=== PATIENT | female | born 1995 | race American Indian/Alaskan Native ===

== ENCOUNTER 2019-04-01 06:39 | Outpatient (CLI) | payer MEDICAID ==
[2019-04-01 07:26] VITALS: BP 115/58
[2019-04-01 08:32] LABS: Bacteria,Urine 3+ /HPF (Negative); Bilirubin,Urine NEG (Negative); Blood,Urine NEG (Negative); Color,Urine Yellow (Yellow); Mucus,Urine FEW /HPF; Protein,Urine <15 mg/dL mg/dL (Negative)
== END 2019-04-01 09:31 | disposition home or self-care (01) ==
LOC: TRG 06:39
PROVIDERS: ATTEND Obstetrics & Gynecology
DX: O26.892 Other specified pregnancy related conditions, second trimester (principal); O36.8920 Maternal care for other specified fetal problems, second trimester, not applicable or unspecified; R10.9 Unspecified abdominal pain; M79.671 Pain in right foot; Z3A.27 27 weeks gestation of pregnancy
CPT/HCPCS: 81001; 93005; 93010

== ENCOUNTER 2020-07-02 16:01 | Emergency (ER) | payer SELFPAY | END 2020-07-02 18:15 | disposition left against medical advice (07) | LOC: ED 16:01 | DX: O26.891 Other specified pregnancy related conditions, first trimester (principal); Z53.21 Procedure and treatment not carried out due to patient leaving prior to being seen by health care provider ==

== ENCOUNTER 2020-11-17 16:34 | Emergency (ER) | payer MEDICAID ==
--- NOTE | 2020-11-17 18:07 | XRay Report ---
RIGHT ANKLE 3 VIEW(S) INDICATION / CLINICAL INFORMATION: swollen ankle COMPARISON: None available. FINDINGS: BONES / JOINT(S): No acute fracture or subluxation. No significant arthritis. SOFT TISSUES: No significant abnormality. ADDITIONAL FINDINGS: None. RIGHT FOOT 3 VIEW(S) INDICATION / CLINICAL INFORMATION: swollen ankle COMPARISON: None available. FINDINGS: BONES / JOINT(S): There is a nondisplaced fracture of the fifth metatarsal base. No significant arthr itis. SOFT TISSUES: There is moderate subcutaneous edema along the lateral aspect of the midfoot. ADDITIONAL FINDINGS: None. IMPRESSION: Nondisplaced fracture of the fifth metatarsal base. Signer Name: Ildefonso Renee MD Signed: 11/17/2020 6:03 PM Workstation Name: [id number]
[2020-11-17] MEDS ORDERED: ACETAMINOPHEN W/CODEINE 300-30 MG TAB PO ONE (18:10)
[2020-11-17] MEDS ORDERED: ACETAMINOPHEN 325 MG TAB PO ONE (18:10)
--- NOTE | 2020-11-17 18:11 | Emergency Department Report ---
ED General Adult HPI - General Chief complaint: Extremity Injury, Lower Stated complaint: RT FOOT INJURY Time Seen by Provider: 11/17/20 17:59 Source: patient Mode of arrival: Wheelchair Limitations: No Limitations - History of Present Illness Initial comments: 25-year-old -[place] female patient presents with complaints of right foot pain after a trip and fall down stairs today. She states she has a small abrasion to her left foot, and is unsure of her last tetanus vaccination. Patient is currently 6 months and denies any vaginal bleeding or abdominal pain. She rates her foot pain is a 10/10 in severity states there is swelling. She denies any numbness. Pain worsens with ambulation and movement and touch. - Related Data Home Medications Medication Instructions Recorded Confirmed Last Taken Vitamin 325 mg PO DAILY 04/01/19 04/01/19 03/31/19 09:00 Previous Rx's Medication Instructions Recorded Last Taken Type Ferrous Sulfate [Feosol 325 MG tab] 325 mg PO BID #60 tablet 06/03/19 Unknown Rx Ibuprofen [Motrin 600 MG tab] 600 mg PO Q6H #30 tablet 06/03/19 Unknown Rx Vit-Fe Fumar-FA [ 1 each PO QDAY #30 tablet 06/03/19 Unknown Rx Vitamin] Acetaminophen/Codeine [Tylenol 1 tab PO Q6H PRN #12 tab 11/17/20 Unknown Rx /Codeine # 3 tab] Allergies Allergy/AdvReac Type Severity Reaction Status Date / Time latex Allergy Severe Rash Verified 11/17/20 17:07 metronidazole [From Flagyl] Allergy Mild Hives Verified 11/17/20 17:07 ED Review of Systems ROS: Stated complaint: RT FOOT INJURY Other details as noted in HPI Gastrointestinal: denies: abdominal pain Genitourinary: denies: abnormal menses Musculoskeletal: joint swelling, arthralgia Neurological: denies: numbness, paresthesias Hematological/Lymphatic: denies: easy bleeding ED Past Medical Hx - Past Medical History Hx Hypertension: No Hx Congestive Heart Failure: No Hx Diabetes: No Hx Deep Vein Thrombosis: No Hx Renal Disease: No Hx Sickle Cell Disease: No Hx Seizures: No Hx Asthma: No Hx COPD: No Hx HIV: No - Social History Smoking Status: Never Smoker Substance Use Type: None - Medications Home Medications: Home Medications Medication Instructions Recorded Confirmed Last Taken Type Vitamin 325 mg PO DAILY 04/01/19 04/01/19 03/31/19 09:00 History Ferrous Sulfate [Feosol 325 MG tab] 325 mg PO BID #60 tablet 06/03/19 Unknown Rx Ibuprofen [Motrin 600 MG tab] 600 mg PO Q6H #30 tablet 06/03/19 Unknown Rx Vit-Fe Fumar-FA [ 1 each PO QDAY #30 tablet 06/03/19 Unknown Rx Vitamin] Acetaminophen/Codeine [Tylenol 1 tab PO Q6H PRN #12 tab 11/17/20 Unknown Rx /Codeine # 3 tab] ED Physical Exam - General Limitations: No Limitations General appearance: alert, in no apparent distress - Head Head exam: Present: atraumatic, normocephalic - Eye Eye exam: Present: normal appearance - Neck Neck exam: Present: normal inspection - Respiratory Respiratory exam: Absent: respiratory distress - Cardiovascular Cardiovascular Exam: Absent: normal rhythm - GI/Abdominal GI/Abdominal exam: Present: soft. Absent: tenderness - Expanded Lower Extremity Exam Right Foot/Toe exam: Present: tenderness, swelling. Absent: ecchymosis, deformity, dislocation Neuro vascular tendon exam: Present: no vascular compromise. Absent: abnormal cap refill Left Foot/Toe exam: Present: abrasion (Small abrasion noted to distal medial portion of foot without obvious foreign body or surrounding erythema) - Neurological Exam Neurological exam: Present: alert, oriented X3 - Psychiatric Psychiatric exam: Present: normal affect, normal mood - Skin Skin exam: Present: warm, dry, normal color. Absent: rash ED Course Vital Signs 11/17/20 19:20 Temperature 98.8 F Pulse Rate 77 Respiratory 18 Rate Blood Pressure 127/65 [Left] O2 Sat by Pulse 100 Oximetry ED Medical Decision Making - Radiology Data Radiology results: report reviewed RIGHT FOOT 3 VIEW(S) INDICATION / CLINICAL INFORMATION: swollen ankle COMPARISON: None available. FINDINGS: BONES / JOINT(S): There is a nondisplaced fracture of the fifth metatarsal base. No significant arthritis. SOFT TISSUES: There is moderate subcutaneous edema along the lateral aspect of the midfoot. ADDITIONAL FINDINGS: None. IMPRESSION: Nondisplaced fracture of the fifth metatarsal base. - Medical Decision Making 25-year-old -[place] female patient presents with complaints of right foot pain after a trip and fall down stairs today. She states she has a small abrasion to her left foot, and is unsure of her last tetanus vaccination. Patient is currently 6 months and denies any vaginal bleeding or abdominal pain. She rates her foot pain is a 10/10 in severity states there is swelling. She denies any numbness. Pain worsens with ambulation and movement and touch. X-ray shows right nondisplaced Barker fracture. Patient placed in a posterior splint-she tolerated procedure well and denies any new pain; she is normal perfusion of the toes post splint application. Crutches provided. Patient informed to remain nonweightbearing and follow-up with orthopedics within 3 to 5 days. She is otherwise well-appearing, her vitals are normal, she is stable for discharge home. Discussed strict return precautions in great detail with patient who verbalizes understanding. Critical care attestation.: If time is entered above; I have spent that time in minutes in the direct care of this critically ill patient, excluding procedure time. ED Disposition Clinical Impression: Barker fracture Qualifiers: Encounter type: initial encounter Fracture type: closed Laterality: right Qualified Code(s): S99.191A - Other physeal fracture of right metatarsal, initial encounter for closed fracture Disposition: DC-01 TO HOME OR SELFCARE Is pt being admited?: No Condition: Stable Instructions: Metatarsal Fracture Prescriptions: Acetaminophen/Codeine [Tylenol /Codeine # 3 tab] 1 tab PO Q6H PRN #12 tab PRN Reason: Pain , Severe (7-10) Referrals: [facility] [Provider Group] - 3-5 Days
[2020-11-17 19:21] VITALS: BP 127/65
== END 2020-11-17 21:36 | disposition home or self-care (01) ==
LOC: ED 16:34
DX: O26.891 Other specified pregnancy related conditions, first trimester (principal); S92.354A Nondisplaced fracture of fifth metatarsal bone, right foot, initial encounter for closed fracture; Z3A.01 Less than 8 weeks gestation of pregnancy; Z79.1 Long term (current) use of non-steroidal anti-inflammatories (NSAID); Z79.899 Other long term (current) drug therapy; Z91.040 Latex allergy status; Z88.8 Allergy status to other drugs, medicaments and biological substances; W01.0XXA Fall on same level from slipping, tripping and stumbling without subsequent striking against object, initial encounter; Y93.89 Activity, other specified; Y92.89 Other specified places as the place of occurrence of the external cause; Y99.8 Other external cause status

== ENCOUNTER 2020-11-19 12:16 | Emergency (ER) | payer SELFPAY ==
[2020-11-19 13:02] VITALS: BP 104/67
== END 2020-11-19 19:00 | disposition left against medical advice (07) ==
LOC: ED 12:16
DX: M79.671 Pain in right foot (principal); Z53.21 Procedure and treatment not carried out due to patient leaving prior to being seen by health care provider

== ENCOUNTER 2020-12-26 10:33 | Outpatient (CLI) | payer MEDICAID ==
[2020-12-26 10:55] VITALS: BP 102/59
[2020-12-26] MEDS ORDERED: LACTATED RINGERS 500 ML IV ONE (11:05)
== END 2020-12-26 12:19 | disposition home or self-care (01) ==
LOC: TRG 10:33 → APU 10:34 → TRG 12:19
PROVIDERS: ATTEND Obstetrics & Gynecology
DX: Z34.93 Encounter for supervision of normal pregnancy, unspecified, third trimester (principal); Z3A.31 31 weeks gestation of pregnancy
CPT/HCPCS: 36415; 59025; 84112

== ENCOUNTER 2021-02-15 19:29 | Outpatient (CLI) | payer MEDICAID ==
[2021-02-15 19:45] VITALS: BP 116/62
== END 2021-02-15 22:14 | disposition home or self-care (01) ==
LOC: TRG 19:29 → APU 19:40 → TRG 22:14
PROVIDERS: ATTEND Obstetrics & Gynecology
DX: Z34.93 Encounter for supervision of normal pregnancy, unspecified, third trimester (principal); Z3A.39 39 weeks gestation of pregnancy
CPT/HCPCS: 59025

== ENCOUNTER 2021-02-16 09:30 | Inpatient (IN) | payer MEDICAID ==
[2021-02-16] MEDS ORDERED: MORPHINE 10 MG/1 ML INJ IM PRN (11:38)
[2021-02-16] MEDS ORDERED: MORPHINE 4 MG/1 ML INJ IM ONE (12:00)
[2021-02-16] MEDS ORDERED: CARBOPROST TROMETHAMINE 250 MCG/1 ML INJ IM PRN ×2 (12:02→12:27)
[2021-02-16] MEDS ORDERED: METHYLERGONOVINE MALEATE 0.2 MG/ML VIAL IM PRN ×2 (12:02→12:27)
[2021-02-16] MEDS ORDERED: BUTORPHANOL 2 MG/1 ML INJ IV PRN (12:02)
[2021-02-16] MEDS ORDERED: miSOPROStol 200 MCG TAB PR PRN ×2 (12:02→12:27)
[2021-02-16] MEDS ORDERED: ACETAMINOPHEN 325 MG TAB PO PRN (12:02)
[2021-02-16] MEDS ORDERED: LOPERAMIDE 2 MG CAP PO PRN ×2 (12:02→12:27)
[2021-02-16] MEDS ORDERED: TERBUTALINE 1 MG/1 ML INJ SUB-Q PRN ×2 (12:02→12:27)
[2021-02-16] MEDS ORDERED: ePHEDrine SULFATE 50 MG/1 ML INJ IV PRN ×2 (12:02→12:27)
[2021-02-16] MEDS ORDERED: LIDOCAINE (2%) 20 MG/1 ML VIAL 20 ML MDV INFILTRATI ONE ×3 (12:02→19:27)
[2021-02-16] MEDS ORDERED: OXYTOCIN 10 UNIT/1 ML INJ IM PRN ×2 (12:02→12:27)
[2021-02-16] MEDS ORDERED: MINERAL OIL 30 ML ORAL LIQD PO PRN ×2 (12:02→12:27)
[2021-02-16] MEDS ORDERED: LACTATED RINGERS 1,000 ML IV SCH ×2 (12:15→12:30)
[2021-02-16] MEDS ORDERED: ONDANSETRON 4 MG/2 ML INJ IV PRN (12:27)
[2021-02-16] MEDS ORDERED: fentaNYL 100 MCG/2 ML INJ IV PRN (12:27)
[2021-02-16] MEDS ORDERED: AMPICILLIN/NS 2 GM/100 ML 2 GM/100 ML BAG IV ONE (12:27)
--- NOTE | 2021-02-16 12:41 | History and Physical Report ---
History of Present Illness Date of examination: 02/16/21 Date of admission: 02/16/21 12:03 Chief complaint: latent phase of labor,painful contractions Past History Past Surgical History: no surgical history - Obstetrical History Expected Date of Delivery: 02/22/21 Actual Gestation: 39 Week(s) 1 Day(s) : 3 Para: 1 Medications and Allergies Allergies Allergy/AdvReac Type Severity Reaction Status Date / Time latex Allergy Severe Rash Verified 11/17/20 17:07 metronidazole [From Flagyl] Allergy Mild Hives Verified 11/17/20 17:07 Home Medications Medication Instructions Recorded Confirmed Last Taken Type Vit-Fe Fumar-FA [ 1 each PO QDAY #30 tablet 06/03/19 02/16/21 02/15/21 Rx Vitamin] Terconazole 1 applicator VG QHS 02/16/21 02/16/21 02/15/21 History Active Meds: Active Medications Acetaminophen (Acetaminophen 325 Mg Tab) 650 mg PO Q4H PRN PRN Reason: Pain, Mild (1-3) Butorphanol Tartrate (Butorphanol 2 Mg/1 Ml Inj) 1 mg IV Q2H PRN PRN Reason: Pain, Moderate(4-6) LABOR PAIN Carboprost Tromethamine (Carboprost Tromethamine 250 Mcg/1 Ml Inj) 250 mcg IM ONCE PRN PRN Reason: Uterine Bleeding Carboprost Tromethamine (Carboprost Tromethamine 250 Mcg/1 Ml Inj) 250 mcg IM ONCE PRN PRN Reason: Uterine Bleeding Ephedrine Sulfate (Ephedrine Sulfate 50 Mg/1 Ml Inj) 10 mg IV Q2M PRN PRN Reason: Hypotension Ephedrine Sulfate (Ephedrine Sulfate 50 Mg/1 Ml Inj) 10 mg IV Q2M PRN PRN Reason: Hypotension Fentanyl (Fentanyl 100 Mcg/2 Ml Inj) 100 mcg IV Q2H PRN PRN Reason: Pain,Severe (7-10) LABOR PAIN Oxytocin/Sodium Chloride (Pitocin/Ns 30 Unit/500ml) 30 units in 500 mls @ 2 mls/hr IV TITR RIVAS; Protocol Lactated Ringer's (Lactated Ringers) 1,000 mls @ 125 mls/hr IV DIRECT RIVAS Oxytocin/Sodium Chloride (Pitocin/Ns 30 Unit/500ml) 30 units in 500 mls @ 40 mls/hr IV TITR RIVAS; Protocol Oxytocin/Sodium Chloride (Pitocin/Ns 30 Unit/500ml) 30 units in 500 mls @ 2 mls/hr IV TITR RIVAS; Protocol Lactated Ringer's (Lactated Ringers) 1,000 mls @ 125 mls/hr IV DIRECT RIVAS Ampicillin Sodium (Ampicillin/Ns 2 Gm/100 Ml) 2 gm in 100 mls @ 100 mls/hr IV ONCE ONE; Protocol Stop: 02/16/21 13:26 Lidocaine (Lidocaine (2%) 20 Mg/1 Ml Vial 20 Ml Mdv) 20 ml INFILTRATI ONCE ONE Stop: 02/16/21 12:28 Loperamide HCl (Loperamide 2 Mg Cap) 2 mg PO ONCE PRN PRN Reason: give with Hemabate Loperamide HCl (Loperamide 2 Mg Cap) 2 mg PO ONCE PRN PRN Reason: give with Hemabate Methylergonovine Maleate (Methylergonovine Maleate 0.2 Mg/Ml Vial) 0.2 mg IM ONCE PRN PRN Reason: Uterine Bleeding Methylergonovine Maleate (Methylergonovine Maleate 0.2 Mg/Ml Vial) 0.2 mg IM ONCE PRN PRN Reason: Uterine Bleeding Mineral Oil (Mineral Oil 30 Ml Oral Liqd) 30 ml PO QHS PRN PRN Reason: Constipation Mineral Oil (Mineral Oil 30 Ml Oral Liqd) 30 ml PO QHS PRN PRN Reason: Constipation Misoprostol (Misoprostol 200 Mcg Tab) 800 mcg OR ONCE PRN PRN Reason: Uterine Bleeding Misoprostol (Misoprostol 200 Mcg Tab) 800 mcg OR ONCE PRN PRN Reason: Uterine Bleeding Ondansetron HCl (Ondansetron 4 Mg/2 Ml Inj) 4 mg IV Q8H PRN PRN Reason: Nausea And Vomiting Oxytocin (Oxytocin 10 Unit/1 Ml Inj) 10 unit IM ONCE PRN PRN Reason: Uterine Bleeding Oxytocin (Oxytocin 10 Unit/1 Ml Inj) 10 unit IM ONCE PRN PRN Reason: Uterine Bleeding Terbutaline Sulfate (Terbutaline 1 Mg/1 Ml Inj) 0.25 mg SUB-Q ONCE PRN PRN Reason: Hyperstimulation/Hypertonicity Terbutaline Sulfate (Terbutaline 1 Mg/1 Ml Inj) 0.25 mg SUB-Q ONCE PRN PRN Reason: Hyperstimulation/Hypertonicity Review of Systems All systems: negative (reviewed) - Vital Signs Vital signs: Vital Signs Temp Pulse Resp BP Pulse Ox 98 F 75 16 113/69 98 02/16/21 10:13 02/16/21 10:13 02/16/21 10:13 02/16/21 10:13 02/16/21 10:13 Temp Pulse Resp BP Pulse Ox 98 F 81 16 113/69 99 02/16/21 10:13 02/16/21 11:23 02/16/21 10:13 02/16/21 10:13 02/16/21 11:23 Results All other labs normal. Assessment and Plan admission gbs prophylaxis oxytocin epidural/pain meds prn panel CFM Maternal/ well being reassuring overall Kinza Andres MD
[2021-02-16] MEDS ORDERED: OXYTOCIN DRIP 30 UNITS/500 ML BAG IV SCH ×3 (13:00)
[2021-02-16 15:30] LABS: Basophils % (Auto) 0.1 % (0.0-1.8); Eosinophils % (Auto) 0.1 % (0.0-4.3); Hematocrit 37.6 % (30.3-42.9); Hemoglobin 12.5 gm/dl (10.1-14.3); Lymphocytes # (Auto) 1.5 K/mm3 (1.2-5.4); Lymphocytes % (Auto) 9.1 % (13.4-35.0); Mean Corpuscular HGB Conc 33 % (30-34); Mean Corpuscular Volume 98 fl (79-97); Monocytes # (Auto) 0.7 K/mm3 (0.0-0.8); Platelet Count 148 K/mm3 (140-440); Red Blood Count 3.84 M/mm3 (3.65-5.03); Red Cell Distribution Width 13.2 % (13.2-15.2)
[2021-02-16] MEDS ORDERED: AMPICILLIN/NS 1 GM/50 ML 1 GM/50 ML BAG IV SCH (17:00)
--- NOTE | 2021-02-16 20:03 | Procedure Note ---
OB Delivery Note - Delivery Date of Delivery: 02/16/21 Surgeon: RODNEY RICHARDSON Estimated blood loss: <100cc - Vaginal Delivery position: OA Intrapartum events: none Delivery induction: none Delivery augmentation: pitocin Delivery monitor: external FHT, external uterine Route of delivery: Delivery placenta: spontaneous Delivery cord: 3 umbilical vessels Episiotomy: none Delivery laceration: none Anesthesia: none Delivery comments: Patient pushed to deliver a viable male with weight 3310gms and 8/9. Position PAGE, no nuchal cord. Spontaneous cry at delivery. Delivery of the anterior shoulder atraumatic, remainder of delivery uncomplicated. Cord clamped cut and baby handed to waiting [facility] team. Spontaneous delivery of an intact placenta with three-vessel cord. Inspection of the perineum cervix and vagina revealed no lacerations. Firm fundus, EBL 100ml. All sponge needle and instrument counts correct x2. Mom and baby stable to . Kinza Richardson MD
[2021-02-17] MEDS ORDERED: IBUPROFEN 600 MG TAB PO PRN (06:24)
[2021-02-17] MEDS ORDERED: WITCH HAZEL/ GLYCERIN PAD TP PRN (07:43)
[2021-02-17] MEDS ORDERED: PROMETHAZINE 25 MG TAB PO PRN (07:43)
[2021-02-17] MEDS ORDERED: PROMETHAZINE 25 MG RECT SUPP PR PRN (07:43)
[2021-02-17] MEDS ORDERED: LANOLIN/ZINC/DIMETHICONE (LANSINOH) 7 GM TP PRN (07:43)
[2021-02-17] MEDS ORDERED: ONDANSETRON 4 MG/2 ML INJ IV PRN (07:43)
[2021-02-17] MEDS ORDERED: MAGNESIUM HYDROXIDE (MOM) ORAL LIQD UDC PO PRN (07:43)
[2021-02-17] MEDS ORDERED: diphenhydrAMINE 25 MG CAP PO PRN (07:43)
[2021-02-17] MEDS ORDERED: KETOROLAC 30 MG/1 ML INJ IV PRN (07:43)
[2021-02-17] MEDS ORDERED: HYDROcodone/ACETAMINOPHEN 5-325 MG TAB PO PRN (07:43)
[2021-02-17] MEDS: IBUPROFEN 600 MG TAB PO SCH ×3 (09:15→20:57)
[2021-02-17 09:18] LABS: Hematocrit 36.5 % (30.3-42.9)
--- NOTE | 2021-02-17 11:18 | Progress Note ---
Assessment and Plan A: day 1 S/P . P: Continue routine care. Anticipate discharge home tomorrow if patient continues to do well. Subjective - Subjective Date of service: 02/17/21 Principal diagnosis: day 1 S/P Patient reports: appetite normal, voiding normally, pain well controlled, flatus, ambulating normally, no dizzy ambulation, no nauseated [place]: doing well Objective - Vital Signs Latest vital signs: Vital Signs Temp Pulse Resp BP BP Pulse Ox 02/17/21 08:47 97.8 F 74 18 97/51 99 02/17/21 04:46 20 02/17/21 04:35 98.0 F 69 18 114/69 98 02/17/21 00:00 98.6 F 74 16 114/78 02/16/21 21:22 98.9 F 87 20 113/67 99 02/16/21 20:52 90 122/71 02/16/21 20:37 91 H 138/67 02/16/21 20:22 102 H 125/70 02/16/21 20:07 88 122/64 02/16/21 19:58 72 88 02/16/21 19:57 85 89 02/16/21 19:53 87 98 02/16/21 19:52 82 123/63 02/16/21 19:49 91 H 119/62 02/16/21 19:48 85 99 02/16/21 19:43 86 100 02/16/21 19:38 97 H 99 02/16/21 19:33 87 100 02/16/21 19:28 78 100 02/16/21 19:23 88 100 02/16/21 19:20 100 H 114/77 02/16/21 19:18 95 H 100 02/16/21 19:13 94 H 100 02/16/21 19:08 76 100 02/16/21 19:04 97 H 118/77 02/16/21 19:03 84 100 02/16/21 19:01 98.2 F 22 02/16/21 18:58 86 100 02/16/21 18:53 104 H 99 02/16/21 18:51 81 129/70 02/16/21 18:48 79 100 02/16/21 18:43 80 100 02/16/21 18:38 83 100 07/17/21 18:33 83 100 1721 18:28 96 H 100 1721 18:23 86 100 1721 18:19 90 128/72 1721 18:18 83 100 1721 18:13 99 H 99 1721 18:08 85 98 1721 18:03 83 100 1721 17:58 99 H 100 1721 17:53 78 100 1721 17:48 87 98 1721 17:38 86 99 1721 17:33 80 100 1721 17:28 100 H 100 17 17:23 86 100 1721 17:18 89 100 17 17:13 94 H 100 02/16/21 17:08 82 100 21 17:03 85 98 02/16/21 17:00 98.2 F 02/16/21 16:58 79 99 21 16:53 88 96 1721 16:49 75 115/70 1721 16:48 86 98 21 16:43 86 98 21 16:38 94 H 99 21 16:33 91 H 100 21 16:28 79 100 21 16:23 73 99 21 16:18 77 98 21 16:13 71 99 21 16:08 78 98 1721 16:03 86 98 1721 15:58 72 98 1721 15:53 72 98 1721 15:48 83 96 1721 15:43 80 98 1721 15:38 76 98 17/21 15:33 77 96 17/21 15:28 76 98 1721 15:23 91 H 99 1721 15:20 18 21 15:18 102 H 100 1721 15:13 90 98 1721 15:08 81 99 1721 15:03 86 98 1721 14:58 90 98 1721 14:53 85 99 1721 14:48 83 100 02/16/21 14:43 96 H 98 02/16/21 14:38 82 99 02/16/21 14:14 98 H 99 02/16/21 14:09 86 99 02/16/21 14:04 78 100 02/16/21 13:59 82 99 02/16/21 13:54 104 H 99 02/16/21 13:49 76 114/66 100 02/16/21 13:44 85 100 02/16/21 13:39 75 100 02/16/21 13:34 87 99 02/16/21 13:29 73 100 02/16/21 13:24 79 99 02/16/21 13:19 89 99 02/16/21 13:13 81 96 02/16/21 13:08 89 98 02/16/21 13:03 68 98 02/16/21 12:58 87 98 02/16/21 12:00 98.1 F 18 02/16/21 11:23 81 99 02/16/21 11:18 82 98 Intake and Output 02/16/21 02/17/21 02/17/21 23:59 07:59 15:59 Intake Total 240 Output Total 700 400 Balance -460 -400 Intake: Oral 240 Output: Urine 700 400 Void 700 400 Other: Total, Intake Amount 240 Total, Output Amount 600 400 # Voids Void 1 1 Estimated Blood Loss 100 - Exam Abdomen: Present: normal appearance, soft. Absent: distention, tenderness, guarding, rigidity Uterus: Present: normal, firm, fundal height below umbilicus. Absent: bogginess, tenderness Extremities: Present: normal. Absent: tenderness - Labs Labs: Abnormal lab results 02/16/21 Range/Units 14:59 WBC 17.0 H (4.5-11.0) K/mm3 MCV 98 H (79-97) fl Lymph % (Auto) 9.1 L (13.4-35.0) % Seg Neutrophils % 86.7 H (40.0-70.0) % Seg Neutrophils # 14.7 H (1.8-7.7) K/mm3
[2021-02-17 19:28] LABS: Hematocrit 36.7 % (30.3-42.9)
--- NOTE | 2021-02-18 06:21 | Event Note ---
Date: 02/18/21 Repeat CBC and UA have been ordered; awaiting results.
[2021-02-18 09:14] LABS: Basophils % (Auto) 0.2 % (0.0-1.8); Eosinophils # (Auto) 0.2 K/mm3 (0.0-0.4); Eosinophils % (Auto) 1.4 % (0.0-4.3); Hematocrit 37.2 % (30.3-42.9); Hemoglobin 12.3 gm/dl (10.1-14.3); Lymphocytes # (Auto) 2.5 K/mm3 (1.2-5.4); Lymphocytes % (Auto) 19.6 % (13.4-35.0); Mean Corpuscular HGB Conc 33 % (30-34); Mean Corpuscular Volume 98 fl (79-97); Monocytes # (Auto) 0.7 K/mm3 (0.0-0.8); Monocytes % (Auto) 5.4 % (0.0-7.3); Platelet Count 137 K/mm3 (140-440)
--- NOTE | 2021-02-18 13:25 | Progress Note ---
Subjective - Subjective Date of service: 02/18/21 Principal diagnosis: day 1 S/P Interval history: stable for d/c to home Kinza Anders MD Patient reports: appetite normal, voiding normally, pain well controlled, ambulating normally Objective - Vital Signs Latest vital signs: Vital Signs Temp Pulse Resp BP BP Pulse Ox 02/18/21 08:04 16 02/18/21 07:42 97.9 F 78 18 110/64 100 02/18/21 00:10 98.0 F 63 20 118/72 100 02/17/21 20:57 12 02/17/21 17:00 16 114/69 02/17/21 16:00 97.8 F 75 16 114/69 100 02/17/21 13:41 65 16 104/64 98 Intake and Output 02/17/21 02/18/21 02/18/21 23:59 07:59 15:59 Intake Total 120 Balance 120 Intake: Oral 120 Other: Total, Intake Amount 120 # Voids Void 1 1 - Labs Labs: Abnormal lab results 02/18/21 Range/Units 08:28 WBC 12.7 H (4.5-11.0) K/mm3 MCV 98 H (79-97) fl MCH 33 H (28-32) pg RDW 13.0 L (13.2-15.2) % Plt Count 137 L (140-440) K/mm3 Seg Neutrophils % 73.4 H (40.0-70.0) % Seg Neutrophils # 9.3 H (1.8-7.7) K/mm3
--- NOTE | 2021-02-18 13:26 | Discharge Summary ---
Providers - Providers Date of Admission: 02/17/21 07:43 Date of discharge: 02/18/21 Attending physician: RODNEY RICHARDSON MD Primary care physician: RODNEY RICHARDSON MD Hospitalization Condition at discharge: Stable Disposition: DC-01 TO HOME OR SELFCARE Plan - Provider Discharge Summary Activity: no sex for 6 weeks Diet: routine Additional instructions: [] Smoking cessation referral if applicable(refer to patient education folder for contact #) [] Refer to [facility] Booklet Call your doctor immediately for: * Fever > 100.5 * Heavy vaginal bleeding ( >1 pad per hour) * Severe persistent headache * Shortness of breath * Reddened, hot, painful area to leg or breast * Drainage or odor from incision. * Keep incision clean and dry at all times and follow doctor's instructions regarding bathing/showering - Follow up plan Follow up: RODNEY RICHARDSON MD [Primary Care Provider] - 7 Days
[2021-02-18] MEDS: IBUPROFEN 600 MG TAB PO SCH (13:29)
[2021-02-18] MEDS ORDERED: medroxyPROGESTERone ACETATE 150 MG/ML SYRINGE IM NR (13:46)
[2021-02-18 13:50] LABS: Bacteria,Urine 1+ /HPF (Negative); Bilirubin,Urine NEG (Negative); Blood,Urine LG (Negative); Color,Urine Yellow (Yellow); RBC,Urine > 182.0 /HPF (0.0-6.0); Urobilinogen,Urine < 2.0 mg/dL (<2.0)
[2021-02-18 17:32] VITALS: BP 120/77
== END 2021-02-18 15:55 | disposition home or self-care (01) | DRG 775 ==
LOC: TRG 09:30 → APU 09:31 → LD 12:01 → TRG 12:03 → OB 21:18 → OBSVTOIN 02-17 07:43
PROVIDERS: ADMIT Obstetrics & Gynecology; ATTEND Obstetrics & Gynecology
PROC: 10E0XZZ Delivery of Products of Conception, External Approach (ICD-10-PCS; principal; 2021-02-16)
DX: O80 Encounter for full-term uncomplicated delivery (principal); Z3A.39 39 weeks gestation of pregnancy; Z37.0 Single live birth; Z88.8 Allergy status to other drugs, medicaments and biological substances; Z91.040 Latex allergy status; Z20.822 Contact with and (suspected) exposure to COVID-19
CPT/HCPCS: 36415; 59025; 81001; 85014; 85018; 85025; 86592; 86706; 86762; 86850; 86900; 86901; 87086; 87186; 87806; 96360; 96361; 96365; G0378; J0290; J1050; J2590; J3010; J7120; U0003

== ENCOUNTER 2021-09-09 12:37 | Emergency (ER) | payer SELFPAY ==
--- NOTE | 2021-09-09 14:55 | Emergency Department Report ---
ED Abdominal Pain HPI - General Chief Complaint: Abdominal Pain Stated Complaint: RGHT SIDE PAIN PUI?: No Time Seen by Provider: 09/09/21 14:48 Source: patient Mode of arrival: Ambulatory Limitations: No Limitations - History of Present Illness Initial Comments: 26 yo comes to ER with bilateral lower quad pain. Stopped her control 3 w ago and feels like she is crampy. No vag d/c. Not concerned for STI. No n/v/d. Last BM normal yeterday [id number] Ambulatory non ill and non toxic on exam Complaint: abdominal pain -: Gradual, days(s) Severity: mild - Related Data Home Medications Medication Instructions Recorded Confirmed Last Taken Terconazole 1 applicator VG QHS 02/16/21 02/16/21 02/15/21 Previous Rx's Medication Instructions Recorded Last Taken Type Vit-Fe Fumar-FA [ 1 each PO QDAY #30 tablet 06/03/19 02/15/21 Rx Vitamin] Ibuprofen [Motrin Ib] 200 mg PO Q4HR PRN #60 capsule 02/18/21 Unknown Rx Allergies Allergy/AdvReac Type Severity Reaction Status Date / Time latex Allergy Severe Rash Verified 11/17/20 17:07 metronidazole [From Flagyl] Allergy Mild Hives Verified 11/17/20 17:07 amoxicillin Allergy Hives Verified 09/09/21 14:32 ED Review of Systems ROS: Stated complaint: RGHT SIDE PAIN Other details as noted in HPI Comment: All other systems reviewed and negative ED Past Medical Hx - Past Medical History Previous Medical History?: No Hx Hypertension: No Hx Congestive Heart Failure: No Hx Diabetes: No Hx Deep Vein Thrombosis: No Hx Renal Disease: No Hx Sickle Cell Disease: No Hx Seizures: No Hx Asthma: No Hx COPD: No Hx HIV: No - Surgical History Past Surgical History?: No - Family History Family history: no significant - Social History Smoking Status: Never Smoker Substance Use Type: None - Medications Home Medications: Home Medications Medication Instructions Recorded Confirmed Last Taken Type Vit-Fe Fumar-FA [ 1 each PO QDAY #30 tablet 06/03/19 02/16/21 02/15/21 Rx Vitamin] Terconazole 1 applicator VG QHS 02/16/21 02/16/21 02/15/21 History Ibuprofen [Motrin Ib] 200 mg PO Q4HR PRN #60 capsule 02/18/21 Unknown Rx ED Physical Exam - General Limitations: No Limitations General appearance: alert, in no apparent distress - Head Head exam: Present: atraumatic, normocephalic - Eye Eye exam: Present: normal appearance - ENT ENT exam: Present: mucous membranes moist - Neck Neck exam: Present: normal inspection - Respiratory Respiratory exam: Present: normal lung sounds bilaterally. Absent: respiratory distress - Cardiovascular Cardiovascular Exam: Present: regular rate, normal rhythm. Absent: systolic murmur, diastolic murmur, rubs, gallop - GI/Abdominal GI/Abdominal exam: Present: soft, normal bowel sounds - Extremities Exam Extremities exam: Present: normal inspection - Back Exam Back exam: Present: normal inspection - Neurological Exam Neurological exam: Present: alert, oriented X3 - Psychiatric Psychiatric exam: Present: normal affect, normal mood - Skin Skin exam: Present: warm, dry, intact, normal color. Absent: rash ED Course Vital Signs 09/09/21 09/09/21 14:29 17:05 Temperature 98.2 F Pulse Rate 68 71 Respiratory 16 16 Rate Blood Pressure 107/55 Blood Pressure 111/56 [Right] O2 Sat by Pulse 100 100 Oximetry ED Medical Decision Making - Medical Decision Making Vital Signs 09/09/21 14:29 Temperature 98.2 F Pulse Rate 68 Respiratory 16 Rate Blood Pressure 107/55 O2 Sat by Pulse 100 Oximetry Labs 09/09/21 Unknown Urine Color Yellow Urine Turbidity Clear Urine pH 7.0 Ur Specific [place] 1.016 Urine Protein <15 mg/dl Urine Glucose (UA) Neg Urine Ketones Neg Urine Blood Neg Urine Nitrite Neg Ur Reducing Substances Not Reportable Urine Bilirubin Neg Urine Ictotest Not Reportable Urine Urobilinogen < 2.0 Ur Leukocyte Esterase Neg Urine WBC (Auto) 1.0 Urine RBC (Auto) < 1.0 U Epithel Cells (Auto) 4.0 Urine Bacteria (Auto) 1+ Urine Mucus Few Urine HCG, Qual Negative ua noted preg neg I've educated pt on the body's response to stopping BCP that she has been on for some time. She needs to protect herself from preg/std.She verbalizes understanding. Dc home with dc plan of care including diet, activity, meds, and follow up. - Differential Diagnosis ro uti/preg Critical care attestation.: If time is entered above; I have spent that time in minutes in the direct care of this critically ill patient, excluding procedure time. ED Disposition Clinical Impression: Abdominal cramping Disposition: 01 HOME / SELF CARE / HOMELESS Is pt being admited?: No Does the pt Need Aspirin: No Condition: Stable Instructions: Abdominal Pain (ED) Additional Instructions: stay well hydrated follow up with ob this week referral below tylenol for pain safe sex Referrals: THANH REBOLLAR MD [Staff Physician] - 3-5 Days EMILIANO GREENWOOD MD [Staff Physician] - 3-5 Days Forms: Work/School Release Form(ED) Time of Disposition: 14:54
[2021-09-09 16:36] LABS: HCG Qualitative,Urine Negative (Negative)
[2021-09-09 16:37] LABS: Bacteria,Urine 1+ /HPF (Negative); Bilirubin,Urine NEG (Negative); Blood,Urine NEG (Negative); Color,Urine Yellow (Yellow); Mucus,Urine FEW /HPF; Protein,Urine <15 mg/dL mg/dL (Negative); RBC,Urine < 1.0 /HPF (0.0-6.0); Urobilinogen,Urine < 2.0 mg/dL (<2.0)
[2021-09-09 17:07] VITALS: BP 111/56
== END 2021-09-09 17:07 | disposition home or self-care (01) ==
LOC: ED 12:37
DX: R10.84 Generalized abdominal pain (principal); Z91.040 Latex allergy status; Z88.0 Allergy status to penicillin; Z88.1 Allergy status to other antibiotic agents
CPT/HCPCS: 81001; 81025; 99283

== ENCOUNTER 2022-02-24 12:28 | Emergency (ER) | payer MEDICAID ==
--- NOTE | 2022-02-24 13:39 | Emergency Department Report ---
Chief Complaint: Urogenital-Female Stated Complaint: BLOODY STOOL/PEVIC PAIN/DIZZY - HPI History of Present Illness: 26 yo female presents with pelvic pain, bright red stools, weakneess, dizzinsss x 2 days. no prior hx focus exam performed, pale puny appearing female in no acue distress. i only screened pt and ordered appropriate tests based on her history and complaints to expediate the wait process. pt will be seen by a ed provider when moved to a room - ROS Review of Systems: + pelvic pain, n/v, bloody stools - Exam Vital Signs: Vital Signs 02/24/22 13:26 Temperature 98.9 F Pulse Rate 94 H Respiratory 14 Rate Blood Pressure 121/76 O2 Sat by Pulse 98 Oximetry Physical Exam: pale puny, uncomfortable appearing abd tender on palpations lungs clear puja, heart sounds present MSE screening note: Focused history and physical exam performed. Due to findings the following was ordered: ED Disposition for MSE Condition: Stable
[2022-02-24 15:14] LABS: Basophils % (Auto) 0.4 % (0.0-1.8); Hematocrit 42.1 % (30.3-42.9); Hemoglobin 13.6 gm/dl (10.1-14.3); Lymphocytes % (Auto) 14.6 % (13.4-35.0); Mean Corpuscular HGB Conc 32 % (30-34); Mean Corpuscular Volume 93 fl (79-97); Monocytes # (Auto) 0.3 K/mm3 (0.0-0.8); Monocytes % (Auto) 4.1 % (0.0-7.3); Platelet Count 145 K/mm3 (140-440); Red Blood Count 4.52 M/mm3 (3.65-5.03); Red Cell Distribution Width 13.5 % (13.2-15.2)
[2022-02-24 15:28] LABS: Alanine Aminotransferase 6 units/L (7-56); Albumin 4.6 g/dL (3.9-5); BUN/Creatinine Ratio 14; Blood Urea Nitrogen 11 mg/dL (7-17); Calcium 9.5 mg/dL (8.4-10.2); Hemolysis Index 1
[2022-02-24 15:30] LABS: INR 1.03 (0.87-1.13)
--- NOTE | 2022-02-24 16:46 | Cat Scan Report ---
CT ABDOMEN AND PELVIS WITH CONTRAST INDICATION / CLINICAL INFORMATION: pelvic pain, dark bloody stools, vomiting 60ml of [id number] . TECHNIQUE: Axial CT images were obtained through the abdomen and pelvis after IV contrast. All CT scans at this location are performed using CT dose reduction for ALARA by means of automated exposure control. COMPARISON: None available. FINDINGS: LOWER CHEST: No significant abnormality. LIVER: No significant abnormality. GALLBLADDER: There is cholelithiasis without evidence of acute cholecystitis. BILE DUCTS: No significant abnormality. PANCREAS: No significant abnormality. SPLEEN: No significant abnormality. ADRENALS: No significant abnormality. RIGHT KIDNEY/URETER: No significant abnormality. LEFT KIDNEY/URETER: No significant abnormality. STOMACH/SMALL BOWEL: No significant abnormality. COLON: There is generalized moderate thickening of the colon without other significant abnormalities. APPENDIX: No significant abnormality. PERITONEUM: Trace free fluid is seen along the pelvis. No free air. No fluid collection. LYMPH NODES: No significant adenopathy. VASCULATURE: No significant abnormality. URINARY BLADDER: No significant abnormality. REPRODUCTIVE ORGANS: No significant abnormality. ADDITIONAL FINDINGS: None. BONES: No significant abnormality IMPRESSION: 1. Uncomplicated pancolitis without other acute findings. 2. Cholelithiasis. Signer Name: Andrew Weinberg MD Signed: 02/24/2022 4:42 PM Workstation Name: [id number]
[2022-02-24] MEDS ORDERED: levoFLOXacin 750 MG TAB PO ONE (18:40)
[2022-02-24] MEDS ORDERED: MORPHINE 4 MG/1 ML INJ IV ONE (18:40)
[2022-02-24] MEDS ORDERED: ONDANSETRON 4 MG/2 ML INJ IV ONE (18:40)
[2022-02-24 18:49] LABS: Mucus,Urine 3+ /HPF
[2022-02-24 19:19] LABS: Color,Urine Yellow (Yellow)
[2022-02-24 19:20] LABS: Bilirubin,Urine Negative (Negative); Blood,Urine 1+ (Negative); Urobilinogen,Urine < 2.0 mg/dL (<2.0)
[2022-02-24] MEDS ORDERED: SODIUM CHLORIDE 0.9% 1000 ML 1,000 ML IV ONE (19:20)
--- NOTE | 2022-02-24 19:30 | Emergency Department Report ---
ED Abdominal Pain HPI - General Chief Complaint: Urogenital-Female Stated Complaint: BLOODY STOOL/PEVIC PAIN/DIZZY Time Seen by Provider: 02/24/22 16:13 Source: patient Mode of arrival: Ambulatory Limitations: No Limitations - History of Present Illness Initial Comments: 26 yo black female with no pmh presents to the ed for evaluation of 2 day history of nausea, diarrhea, and abdominal cramping. She states that she did note a few episodes where she had some blood in her stool. She states that for 2 days, she has had multiple stools per day, then today, she started to have some dizziness, so she decided to come to ed for further evaluation. She denies fever, vomiting, dysuria, and vaginal discharge. MD Complaint: other (diarrhea and abdomional cramping. ) -: Gradual, days(s) (2) Location: diffuse Radiation: none Migration to: no migration Severity: severe Severity scale (0 -10): 10 Quality: cramping Consistency: intermittent Associated Symptoms: nausea, diarrhea. denies: vomiting, fever, chills, dysuria, hematemesis, hematochezia, melena, hematuria, anorexia, syncope - Related Data LMP Date: 02/24/22 Home Medications Medication Instructions Recorded Confirmed Last Taken Terconazole 1 applicator VG QHS 02/16/21 02/16/21 02/15/21 Previous Rx's Medication Instructions Recorded Last Taken Type Vit-Fe Fumar-FA [ 1 each PO QDAY #30 tablet 06/03/19 02/15/21 Rx Vitamin] Ibuprofen [Motrin Ib] 200 mg PO Q4HR PRN #60 capsule 02/18/21 Unknown Rx Acetaminophen/Codeine [Tylenol 1 tab PO Q6H PRN #12 tab 02/24/22 Unknown Rx /Codeine # 3 tab] Loperamide [Imodium] 2 mg PO Q2HR PRN #10 capsule 02/24/22 Unknown Rx Ondansetron [Zofran Odt] 4 mg PO Q8HR PRN #12 tab.rapdis 02/24/22 Unknown Rx Allergies Allergy/AdvReac Type Severity Reaction Status Date / Time latex Allergy Severe Rash Verified 11/17/20 17:07 metronidazole [From Flagyl] Allergy Mild Hives Verified 11/17/20 17:07 amoxicillin Allergy Hives Verified 09/09/21 14:32 ED Review of Systems ROS: Stated complaint: BLOODY STOOL/PEVIC PAIN/DIZZY Other details as noted in HPI Comment: All other systems reviewed and negative Constitutional: denies: chills, diaphoresis, fever, malaise, weakness Eyes: denies: eye pain, vision change ENT: denies: congestion Respiratory: denies: shortness of breath Cardiovascular: denies: chest pain, palpitations Gastrointestinal: abdominal pain, nausea, diarrhea. denies: vomiting, hematemesis, melena, hematochezia Genitourinary: denies: urgency, dysuria, frequency, hematuria, discharge, abn ormal menses Musculoskeletal: denies: back pain Skin: denies: rash, lesions Neurological: weakness. denies: headache ED Past Medical Hx - Past Medical History Hx Hypertension: No Hx Congestive Heart Failure: No Hx Diabetes: No Hx Deep Vein Thrombosis: No Hx Renal Disease: No Hx Sickle Cell Disease: No Hx Seizures: No Hx Asthma: No Hx COPD: No Hx HIV: No - Surgical History Past Surgical History?: No - Social History Smoking Status: Never Smoker - Medications Home Medications: Home Medications Medication Instructions Recorded Confirmed Last Taken Type Vit-Fe Fumar-FA [ 1 each PO QDAY #30 tablet 06/03/19 02/16/21 02/15/21 Rx Vitamin] Terconazole 1 applicator VG QHS 02/16/21 02/16/21 02/15/21 History Ibuprofen [Motrin Ib] 200 mg PO Q4HR PRN #60 capsule 02/18/21 Unknown Rx Acetaminophen/Codeine [Tylenol 1 tab PO Q6H PRN #12 tab 02/24/22 Unknown Rx /Codeine # 3 tab] Loperamide [Imodium] 2 mg PO Q2HR PRN #10 capsule 02/24/22 Unknown Rx Ondansetron [Zofran Odt] 4 mg PO Q8HR PRN #12 tab.rapdis 02/24/22 Unknown Rx ED Physical Exam - General Limitations: No Limitations General appearance: alert, in no apparent distress - Head Head exam: Present: atraumatic, normocephalic - Eye Eye exam: Present: normal appearance. Absent: conjunctival injection, periorbital swelling, periorbital tenderness - Neck Neck exam: Present: normal inspection, full ROM. Absent: tenderness, lymphadenopathy - Respiratory Respiratory exam: Present: normal lung sounds bilaterally. Absent: respiratory distress, wheezes, rales, rhonchi, stridor, chest wall tenderness - Cardiovascular Cardiovascular Exam: Present: regular rate, normal heart sounds - GI/Abdominal GI/Abdominal exam: Present: soft, tenderness (generalized), normal bowel sounds. Absent: distended, guarding, rebound, rigid - Extremities Exam Extremities exam: Present: normal inspection, normal capillary refill. Absent: pedal edema - Back Exam Back exam: Present: normal inspection. Absent: CVA tenderness (R), CVA tenderness (L) - Neurological Exam Neurological exam: Present: alert, oriented X3 - Psychiatric Psychiatric exam: Present: normal affect, normal mood - Skin Skin exam: Present: warm, dry, intact, pallor ED Course Vital Signs 02/24/22 02/24/22 13:26 21:03 Temperature 98.9 F Pulse Rate 94 H 66 Respiratory 14 16 Rate Blood Pressure 121/76 Blood Pressure 128/72 [Left] O2 Sat by Pulse 98 98 Oximetry ED Medical Decision Making - Lab Data Result diagrams: 02/24/22 13:57 02/24/22 13:57 - Radiology Data Radiology results: report reviewed, image reviewed CT abdomen and pelvis without contrast: FINDINGS: LOWER CHEST: No significant abnormality. LIVER: No significant abnormality. GALLBLADDER: There is cholelithiasis without evidence of acute cholecystitis. BILE DUCTS: No significant abnormality. PANCREAS: No significant abnormality. SPLEEN: No significant abnormality. ADRENALS: No significant abnormality. RIGHT KIDNEY/URETER: No significant abnormality. LEFT KIDNEY/URETER: No significant abnormality. STOMACH/SMALL BOWEL: No significant abnormality. COLON: There is generalized moderate thickening of the colon without other significant abnormalities. APPENDIX: No significant abnormality. PERITONEUM: Trace free fluid is seen along the pelvis. No free air. No fluid collection. LYMPH NODES: No significant adenopathy. VASCULATURE: No significant abnormality. URINARY BLADDER: No significant abnormality. REPRODUCTIVE ORGANS: No significant abnormality. ADDITIONAL FINDINGS: None. BONES: No significant abnormality IMPRESSION: 1. Uncomplicated pancolitis without other acute findings. 2. Cholelithiasis. - Medical Decision Making 26 yo black female with no pmh presents to the ed for evaluation of 2 day history of nausea, diarrhea, and abdominal cramping. She states that she did note a few episodes where she had some blood in her stool. She states that for 2 days, she has had multiple stools per day, then today, she started to have some dizziness, so she decided to come to ed for further evaluation. She denies fever, vomiting, dysuria, and vaginal discharge. CT positive for pancolitis and gallstones. Patient treated with 1 liter NS, one time dose of Levaquin, morphine and zofran in ed then discharged home with zofran and loperimide to take as directed. She is advised to increase intake of non caffinated fluids adn follow up with her pcp or GI if no improvement or worsening symptoms or return to ED as needed. She verbalized understanding of and agreement with plan of care. Critical care attestation.: If time is entered above; I have spent that time in minutes in the direct care of this critically ill patient, excluding procedure time. ED Disposition Clinical Impression: Colitis, Gallstones Disposition: HOME / SELF CARE / HOMELESS Is pt being admited?: No Does the pt Need Aspirin: No Condition: Stable Instructions: Food Choices to Help Relieve Diarrhea, Adult, Colitis, Cholelithiasis, Vsqk-[id number]-[id number] Additional Instructions: Take medications as prescribed. Drink plenty of noncaffeinated fluids over the next few days. Follow-up with your primary care doctor or stomach doctor if no improvement or worsening symptoms. Return to the emergency department as needed. Prescriptions: Loperamide [Imodium] 2 mg PO Q2HR PRN #10 capsule PRN Reason: Diarrhea Acetaminophen/Codeine [Tylenol /Codeine # 3 tab] 1 tab PO Q6H PRN #12 tab PRN Reason: Pain , Severe (7-10) Ondansetron [Zofran Odt] 4 mg PO Q8HR PRN #12 tab.rapdis PRN Reason: Nausea And Vomiting Referrals: THANH REBOLLAR MD [Staff Physician] - 3-5 Days BRUNO ESPINOZA MD [Staff Physician] - 3-5 Days Forms: Work/School Release Form(ED) Time of Disposition: 20:40
[2022-02-24 21:05] VITALS: BP 128/72
== END 2022-02-24 21:05 | disposition home or self-care (01) ==
LOC: ED 12:28
DX: K52.9 Noninfective gastroenteritis and colitis, unspecified (principal); K85.10 Biliary acute pancreatitis without necrosis or infection; Z88.0 Allergy status to penicillin; Z88.8 Allergy status to other drugs, medicaments and biological substances; Z91.040 Latex allergy status
CPT/HCPCS: 36415; 74177; 80053; 81001; 84703; 85025; 85610; 85730; 96361; 96374; 96375; 99284; J2270; J2405; J7030; Q9967